=== PATIENT | male | born 1950 | race Caucasian/White ===

== ENCOUNTER 2018-01-15 14:36 | Emergency (ER) | payer OTHER ==
[2018-01-15 15:07] LABS: #Basophils 0.1 thou/uL (0.0-0.2); #Eosinphils 0.5 thou/uL (0.0-0.7); #Lymphocytes 1.9 thou/uL (1.20-3.40); #Monocytes 0.9 thou/uL (0.11-0.59); #Neutrophils 4.2 thou/uL (1.40-6.50); %Basophils 0.8 % (0.0-1.0); %Eosinophils 6.4 % (0.0-10.0); %Lymphocytes 25.3 % (21.0-51.0); %Monocytes 11.9 % (0.0-10.0); %Neutrophils 55.6 % (42.0-75.0); Hemoglobin 14.4 g/dL (14.0-18.0); Mean Corpuscular HGB CONC 36.1 g/dL (32.0-36.0); Mean Corpuscular Hemoglobin 31.6 pg (27.0-31.0); Mean Corpuscular Volume 87.6 fL (78.0-98.0); Mean Platelet Volume 6.4 fL (7.4-10.4); Platelet Count 252 thou/uL (130-400); RBC Distribution Width 11.9 % (11.5-14.5); Red Blood Cell (RBC) Count 4.56 mill/uL (4.70-6.10); White Blood Cell (WBC) Count 7.5 thou/uL (4.8-10.8)
--- NOTE | 2018-01-15 15:12 | CT ---
CT OF BRAIN PERFORMED WITHOUT CONTRAST ENHANCEMENT: History: Facial droop. Right sided facial numbness. FINDINGS: Ventricular and cisternal system shows some mild atrophy. There are areas of decreased attenuation in the periventricular white matter, slightly more focal areas in the right frontal white matter and le ft posterior frontal parietal regions but these all could just represent chronic change. No intracere bral hemorrhage or mass effect. Mastoid air cells are clear. The visualized sinuses show ethmoid air cell mucosal change. IMPRESSION: 1. No acute intracranial abnormalities. 2. Findings telephoned to Dr. Acevedo at 1445 hours. POS: [facility]
[2018-01-15 15:13] LABS: INR-International Normal Ratio 1.1; PTT 28.3 SEC (22.9-36.1); Prothrombin Time 13.9 SEC (12.0-14.7)
[2018-01-15 15:25] LABS: CKMB 1.6 ng/mL (0-6.6); Troponin I Less than 0.010 ng/mL (< 0.028)
[2018-01-15 15:26] LABS: ALT (SGPT) 15 U/L (8-55); AST (SGOT) 13 U/L (5-34); Alkaline Phosphatase 67 U/L (40-150); Anion Gap 12 mmol/L (10-20); BUN (Urea Nitrogen) 12 mg/dL (8.4-25.7); Bilirubin, Total 0.5 mg/dL (0.2-1.2); Calc. Creatinine Clearance 0 mL/min (70-130); Calcium 9.3 mg/dL (7.8-10.44); Carbon Dioxide 21 mmol/L (23-31); Chloride 105 mmol/L (98-107); Estimated GFR-MDRD Greater than 90; Globulin 2.5 g/dL (2.4-3.5); Glucose 112 mg/dL (80-115); Protein, Total 6.5 g/dL (5.8-8.1); Sodium 134 mmol/L (136-145)
--- NOTE | 2018-01-15 15:42 | CT ---
CT ANGIO OF NECK AND HEAD PERFORMED WITH AND WITHOUT CONTRAST WITH 3D RECONSTRUCTIONS: History: Right sided facial numbness and facial droop. FINDINGS: The lung apices are clear of any infiltrative process. Thyroid gland is normal in size. No significant jugular chain adenopathy. The parotid and submandibul ar gland regions appear unremarkable. Parapharyngeal spaces are clear. CT ANGIO OF NECK PERFORMED WITH CONTRAST WITH 3D RECONSTRUCTIONS: There is a separate origin of the left common carotid artery from the aortic arch with some minimal s tenosis of less than 30%. The vertebral arteries are co-dominant. There is atherosclerotic plaque and what appears to be severe narrowing of the origin of the left vertebral. There is no stenosis of the subclavian artery. On the left side there is prominent calcified plaque of the origin of the left internal carotid arter y but less than 50% narrowing by NASCET criteria. No significant stenosis of the external carotid. On the right side there is less than 50% narrowing of the internal carotid artery, but no significant narrowing of the external carotid artery seen. CT ANGIO HEAD PERFORMED WITH CONTRAST WITH 3D RECONSTRUCTIONS: The basilar and posterior cerebral arteries appear unremarkable. Anterior circulation shows no evidence of any aneurysm or any intraluminal thrombus within the A1 or M1 segments. Fairly symmetric flow seen in the Sylvian branches of both middle cerebral arteries. IMPRESSION: 1. Less than 50% narrowing of both internal carotid arteries by NASCET criteria. 2. Severe stenosis of the origin of the left vertebral. 3. Findings telephoned to Dr. Acevedo at 1500 hours. POS: [facility]
[2018-01-15] MEDS ORDERED: Dexamethasone 4 mg/ml Vial ONE (17:23)
== END 2018-01-15 17:28 ==
LOC: ERS 14:36
DX: G51.0 Bell's palsy (principal); E78.5 Hyperlipidemia, unspecified; I10 Essential (primary) hypertension; Z87.891 Personal history of nicotine dependence; Z79.82 Long term (current) use of aspirin; Z79.899 Other long term (current) drug therapy
CPT/HCPCS: 36416; 70450; 70496; 70498; 80053; 82553; 84484; 85025; 85610; 85730; 93005; 96374; J1100